=== PATIENT | female | born 1980 | race Caucasian/White ===

== ENCOUNTER 2020-06-29 17:12 | Emergency (ER) | payer SELFPAY ==
[~2020-06-29] VITALS: Ht 149.9 cm; Wt 63.6 kg
[2020-06-29 17:40] VITALS: BP 151/104
[2020-06-29] MEDS ORDERED: MORPHINE SULFATE 10 MG/ML VIAL. IV ONE (18:15)
[2020-06-29] MEDS ORDERED: MORPHINE SULFATE 10 MG/ML VIAL. IM ONE (18:30)
--- NOTE | 2020-06-29 18:43 | PHYS DOC ---
Past Medical History Past Medical History: Anxiety, Depression Additional Past Medical Histor: PTSD, ADHD Past Surgical History: No Surgical History Smoking Status: Current Every Day Smoker Alcohol Use: None General Adult EDM: Chief Complaint: PAIN CONTROL HPI: HPI: Patient is a 39 year old homeless female who presents to the ED today complaining of 10 out of 10 left ankle pain described as sharp and constant that began a week ago after she fell and fractured her left ankle. Patient was seen at [facility], she was evaluated and splinted. She was instructed to follow-up with an orthopedic doctor which she has not done. She states she followed up with the emergency room and they sent her back home. She presents today complaining of pain and requesting to be admitted so she can be seen by an orthopedic doctor right now. Review of Systems: Review of Systems: Constitutional: Denies fever or chills. [] Musculoskeletal: Reports left ankle pain Integument: Denies rash. [] Neurologic: Denies headache, focal weakness or sensory changes. [] ] Heart Score: Risk Factors: Risk Factors: DM, Current or recent (<one month) smoker, HTN, HLP, family history of CAD, obesity. Risk Scores: Score 0 - 3: 2.5% MACE over next 6 weeks - Discharge Home Score 4 - 6: 20.3% MACE over next 6 weeks - Admit for Clinical Observation Score 7 - 10: 72.7% MACE over next 6 weeks - Early Invasive Strategies Current Medications: Current Medications Medications (Trade) Dose Ordered Sig/Madelin Start Time Stop Time Status Last Admin Dose Admin Morphine Sulfate (Morphine Sulfate) 5 mg 1X ONCE 06/29/20 18:30 06/29/20 18:31 DC Allergies: Allergies: Allergies Coded Allergies Type Severity Reaction Last Updated Verified No Known Drug Allergies 06/29/20 No Physical Exam: PE: Constitutional: Well developed, well nourished, no acute distress, non-toxic appearance. [] Skin: Warm, dry, no erythema, no rash. [] Back: No tenderness, no CVA tenderness. [] Extremities: Left lower extremity is splinted, cap refill less than 2 seconds to left toes. Patient able to wiggle the left toes. Sensation intact to the left toes. Neurologic: Alert and oriented X 3, normal motor function, normal sensory function, no focal deficits noted. [] Psychologic: Flat affect. Tearful. Current Patient Data: Vital Signs: Vital Signs Date Time Temp Pulse Resp B/P (MAP) Pulse Ox O2 Delivery O2 Flow Rate FiO2 06/29/20 17:40 97.6 92 14 151/104 (120) 98 Room Air 97.6 EKG: EKG: [] Radiology/Procedures: Radiology/Procedures: [] Course & Med Decision Making: Course & Med Decision Making Pertinent Labs and Imaging studies reviewed. (See chart for details) This is a 39-year-old female patient presenting to the ED today with left ankle pain that began a week ago after she fell and fractured her left ankle. Patient was seen at [facility] and was splinted and instructed to follow-up with an orthopedic doctor. She is homeless and presents today complaining of pain and requesting we admit her or give her pain pills to take home. I spoke to patient at length. Informed patient we cannot discharge her to follow-up with an orthopedic doctor as an outpatient and if she does not have a place to go we can send her to a homeless [facility]. Gemma Disclaimer: Gemma Disclaimer: This electronic medical record was generated, in whole or in part, using a voice recognition dictation system. Departure Departure Impression: Primary Impression: Left ankle pain Qualified Codes: M25.572 - Pain in left ankle and joints of left foot Additional Impressions: Homeless Ankle fracture, left Qualified Codes: S82.892S - Other fracture of left lower leg, sequela Disposition: 01 HOME, SELF-CARE Condition: STABLE Referrals: LAINE THOMSON (PCP) MADDY WONG MD follow up as soon as possible Patient Instructions: Ankle Pain Additional Instructions: You were seen for ongoing left ankle pain. Please follow-up with orthopedic doctor provided. Try to ice and elevate the extremity. Justicifation of Admission Dx: Justifications for Admission: Justification of Admission Dx: N/A ROQUE LIRIANO APRN Jun 29, 2020 18:42
[2020-06-29] MEDS ORDERED: KETOROLAC 60 MG/2 ML VIAL. IM ONE (19:15)
[2020-06-29] MEDS ORDERED: diazePAM 5 MG TABLET PO ONE (19:15)
[2020-06-29] MEDS ORDERED: HYDROmorphone 2 MG/ML VIAL IM ONE (19:15)
[2020-06-29] MEDS ORDERED: methylPREDNISolone SOD SUCC PF 125 MG/2 ML VIAL. IM ONE (19:15)
== END 2020-06-29 22:30 | disposition home or self-care (01) ==
LOC: ER 17:12
DX: S82.892S Other fracture of left lower leg, sequela (principal); M25.572 Pain in left ankle and joints of left foot; Z59.0 Homelessness; F17.200 Nicotine dependence, unspecified, uncomplicated; W18.39XS Other fall on same level, sequela
CPT/HCPCS: 96372; 99284; J1170; J1885; J2270; J2930